=== PATIENT | female | born 1965 | race Two or more races ===

== ENCOUNTER 2023-04-22 11:41 | Inpatient (IN) | payer OTHER ==
[2023-04-22 12:01] VITALS: BMI 19.9
[2023-04-22] MEDS ORDERED: POLYETHYLENE GLYCOL (HEALTHYLAX) 3350 17 GM PACKET PO PRN (13:40)
[2023-04-22] MEDS ORDERED: NICOTINE POLACRILEX 2 MG GUM BUC PRN (13:40)
[2023-04-22] MEDS ORDERED: ONDANSETRON *ODT* 4 MG TABLET SL PRN (13:40)
[2023-04-22] MEDS ORDERED: guaiFENesin 600 MG TABLET.ER (FP) PO PRN (13:40)
[2023-04-22] MEDS ORDERED: MAG HYDROX/AL HYDROX/SIMETH 30 ML UNIT-DOSE CUP PO PRN (13:40)
[2023-04-22] MEDS ORDERED: IBUPROFEN 600 MG TABLET (FP) PO PRN (13:40)
[2023-04-22] MEDS ORDERED: COLLOIDAL OATMEAL 1 BAR EACH TP PRN (13:40)
[2023-04-22] MEDS ORDERED: AMMONIUM LACTATE 12% LOTION 225 GM BOTTLE TP PRN (13:40)
[2023-04-22] MEDS ORDERED: IBUPROFEN 400 MG TABLET (FP) PO PRN (13:40)
[2023-04-22] MEDS ORDERED: NALOXONE HCL (KLOXXADO) 8 MG SPRAY NS PRN (13:40)
[2023-04-22] MEDS ORDERED: BISMUTH SUBSALICYLATE 262 MG/15 ML BTL PO PRN (13:40)
[2023-04-22] MEDS ORDERED: LORazepam 2 MG TABLET PO ONE (13:40)
[2023-04-22] MEDS ORDERED: NICOTINE 10 MG CARTRIDGE (INHALER) IH PRN (13:40)
[2023-04-22] MEDS ORDERED: NALOXONE HCL 0.4 MG/ML VIAL IM PRN (13:40)
[2023-04-22] MEDS ORDERED: MAGNESIUM HYDROX 2400MG/30ML ORAL SUSPENSION 30 ML CUP PO PRN (13:40)
[2023-04-22] MEDS ORDERED: LOPERAMIDE HCL 2 MG CAPSULE PO PRN (13:40)
[2023-04-22] MEDS ORDERED: DICYCLOMINE HCL 10 MG CAPSULE PO PRN (13:40)
[2023-04-22] MEDS ORDERED: ACETAMINOPHEN 325 MG TABLET (FP) PO PRN (13:40)
[2023-04-22] MEDS ORDERED: NICOTINE 21 MG/24 HOURS TOPICAL PATCH ONE (14:49)
[2023-04-22] MEDS ORDERED: LORazepam 2 MG TABLET ONE (14:50)
[2023-04-22] MEDS: NICOTINE 21 MG/24 HOURS TOPICAL PATCH TD SCH (15:04)
[2023-04-22 16:16] LABS: CHLORIDE 92 mmol/L (98-107); SODIUM 132 mmol/L (136-145)
[2023-04-22 16:18] LABS: CALCIUM 8.5 mg/dL (8.5-10.1)
[2023-04-22 16:19] LABS: ALBUMIN 2.8 g/dl (3.4-5.0); BLOOD UREA NITROGEN 3.5 mg/dL (7-18); CO2 29 mmol/L (21-32); GLUCOSE,RANDOM 99 mg/dL (74-106)
[2023-04-22 16:20] LABS: HEMATOCRIT 34.6 % (32.4-45.2); HEMOGLOBIN 11.7 GM/dL (10.7-15.3); MCHC 33.8 g/dl (32.0-36.0); MEAN CELL VOLUME 85.7 fl (80-96); MEAN PLT VOLUME 8.4 fl (7.5-11.1); PLATELET COUNT 220 10^3/uL (134-434); RBC 4.03 M/mm3 (3.60-5.2)
[2023-04-22 16:22] LABS: CREATININE 0.4 mg/dL (0.55-1.3); SGOT/AST 167 U/L (15-37); SGPT/ALT 53 U/L (13-61)
[2023-04-22 16:24] LABS: BILIRUBIN,TOTAL 0.9 mg/dL (0.2-1); TOT PROT 6.7 g/dl (6.4-8.2)
[2023-04-22 16:25] LABS: ALK PHOS 369 U/L (45-117)
[2023-04-22 16:26] LABS: ANION GAP 11 MMOL/L (8-16); POTASSIUM 2.6 mmol/L (3.5-5.1)
[2023-04-22] MEDS ORDERED: POTASSIUM CHLORIDE TABS 20 MEQ TABLET.ER (FP) PO ONE (16:34)
[2023-04-22] MEDS: LORazepam 2 MG TABLET PO SCH ×2 (17:26→22:16)
[2023-04-22] MEDS ORDERED: P-EPHED 60MG/TRIPROLIDI 2.5MG TABLET PO PRN (18:19)
[2023-04-22] MEDS ORDERED: ALBUTEROL SO4 2.5/IPRATROPIUM 0.5 INH SOL 3 ML VIAL.NEB. NEB ONE ×2 (18:19→20:26)
[2023-04-22] MEDS ORDERED: MELATONIN 5 MG TABLETS PO SCH (22:00)
[2023-04-22] MEDS: POTASSIUM CHLORIDE TABS 20 MEQ TABLET.ER (FP) PO SCH (22:16)
[2023-04-22] MEDS: THIAMINE HCL 100 MG TABLET (FP) PO SCH (22:16)
[2023-04-22] MEDS: LACTULOSE 20 GM/30 ML UDC (FOR ORAL USE ONLY) PO SCH (22:17)
[2023-04-22] MEDS: BUDESONIDE/FORMETEROL FUMARATE 160/4.5 mcg INHALER IH SCH (22:20)
[2023-04-22] MEDS: BENZONATATE 200 MG CAPSULE PO PRN (22:22)
[2023-04-23] MEDS: LORazepam 2 MG TABLET PO SCH ×4 (05:57→22:14)
[2023-04-23] MEDS: LACTULOSE 20 GM/30 ML UDC (FOR ORAL USE ONLY) PO SCH ×2 (10:04→22:13)
[2023-04-23] MEDS: PRENATAL VITAMINS W/ FOLIC ACID TABLET (FP) PO SCH (10:05)
[2023-04-23] MEDS: LORATADINE 10 MG TABLET PO SCH (10:05)
[2023-04-23] MEDS: POTASSIUM CHLORIDE TABS 20 MEQ TABLET.ER (FP) PO SCH (10:05)
[2023-04-23] MEDS: NICOTINE 21 MG/24 HOURS TOPICAL PATCH TD SCH (10:07)
[2023-04-23] MEDS: guaiFENesin 200 MG/10 ML 10 ML UNIT-DOSE CUPS PO PRN ×2 (10:09→22:19)
[2023-04-23 10:46] LABS: POTASSIUM 2.8 mmol/L (3.5-5.1)
[2023-04-23] MEDS: BUDESONIDE/FORMETEROL FUMARATE 160/4.5 mcg INHALER IH SCH ×2 (11:16→22:14)
[2023-04-23] MEDS: BENZONATATE 200 MG CAPSULE PO PRN (18:30)
[2023-04-23] MEDS: hydrOXYzine PAMOATE 25 MG CAPSULE (FP) PO PRN (20:41)
[2023-04-23] MEDS: METHOCARBAMOL 500 MG TABLET PO PRN (22:12)
[2023-04-23] MEDS: THIAMINE HCL 100 MG TABLET (FP) PO SCH (22:12)
[2023-04-23] MEDS: MELATONIN 5 MG TABLETS PO SCH (22:13)
[2023-04-24] MEDS: LORazepam 1 MG TABLET PO SCH ×4 (05:48→22:08)
[2023-04-24] MEDS: PRENATAL VITAMINS W/ FOLIC ACID TABLET (FP) PO SCH (10:19)
[2023-04-24] MEDS: hydrOXYzine PAMOATE 25 MG CAPSULE (FP) PO PRN ×2 (10:19→17:01)
[2023-04-24] MEDS: LORATADINE 10 MG TABLET PO SCH (10:20)
[2023-04-24] MEDS: NICOTINE 21 MG/24 HOURS TOPICAL PATCH TD SCH (10:21)
[2023-04-24] MEDS: BUDESONIDE/FORMETEROL FUMARATE 160/4.5 mcg INHALER IH SCH ×2 (10:21→22:09)
[2023-04-24] MEDS: LACTULOSE 20 GM/30 ML UDC (FOR ORAL USE ONLY) PO SCH ×2 (10:21→22:07)
[2023-04-24] MEDS ORDERED: POTASSIUM CHLORIDE ORAL LIQUID 20 MEQ/15 ML PO ONE ×4 (10:55→19:00)
[2023-04-24] MEDS: METHOCARBAMOL 500 MG TABLET PO PRN (17:01)
[2023-04-24] MEDS: guaiFENesin 200 MG/10 ML 10 ML UNIT-DOSE CUPS PO PRN ×2 (17:05→22:10)
[2023-04-24] MEDS: MELATONIN 5 MG TABLETS PO SCH (22:07)
[2023-04-24] MEDS: THIAMINE HCL 100 MG TABLET (FP) PO SCH (22:08)
[2023-04-25] MEDS: LORazepam 0.5 MG TABLET PO SCH ×4 (05:55→22:07)
[2023-04-25] MEDS: guaiFENesin 200 MG/10 ML 10 ML UNIT-DOSE CUPS PO PRN ×3 (06:01→18:25)
[2023-04-25] MEDS: BENZOCAINE/MENTHOL (CHLORASEPTIC ) LOZENGE MM PRN (09:21)
[2023-04-25] MEDS: PRENATAL VITAMINS W/ FOLIC ACID TABLET (FP) PO SCH (10:12)
[2023-04-25] MEDS: LORATADINE 10 MG TABLET PO SCH (10:12)
[2023-04-25] MEDS: NICOTINE 21 MG/24 HOURS TOPICAL PATCH TD SCH (10:12)
[2023-04-25] MEDS: BUDESONIDE/FORMETEROL FUMARATE 160/4.5 mcg INHALER IH SCH ×2 (10:13→22:06)
[2023-04-25] MEDS: LACTULOSE 20 GM/30 ML UDC (FOR ORAL USE ONLY) PO SCH ×2 (10:13→22:03)
[2023-04-25 11:34] LABS: POTASSIUM 4.6 mmol/L (3.5-5.1)
[2023-04-25 11:35] LABS: CALCIUM 8.5 mg/dL (8.5-10.1)
[2023-04-25 11:36] LABS: BLOOD UREA NITROGEN 3.8 mg/dL (7-18)
[2023-04-25 11:39] LABS: CREATININE 0.4 mg/dL (0.55-1.3)
[2023-04-25] MEDS: hydrOXYzine PAMOATE 25 MG CAPSULE (FP) PO PRN (17:54)
[2023-04-25] MEDS: MELATONIN 5 MG TABLETS PO SCH (22:04)
[2023-04-25] MEDS: THIAMINE HCL 100 MG TABLET (FP) PO SCH (22:04)
[2023-04-25] MEDS: METHOCARBAMOL 500 MG TABLET PO PRN (22:06)
[2023-04-26] MEDS: BENZOCAINE/MENTHOL (CHLORASEPTIC ) LOZENGE MM PRN (02:37)
[2023-04-26] MEDS: guaiFENesin 200 MG/10 ML 10 ML UNIT-DOSE CUPS PO PRN (02:37)
[2023-04-26] MEDS ORDERED: LORazepam 0.5 MG TABLET PO ONE (05:00)
[2023-04-26 08:48] VITALS: BP 141/84; PULSE 89; RESP 16; TEMP 97.7
[2023-04-26] MEDS: NICOTINE 21 MG/24 HOURS TOPICAL PATCH TD SCH (09:20)
[2023-04-26] MEDS: LACTULOSE 20 GM/30 ML UDC (FOR ORAL USE ONLY) PO SCH (09:20)
[2023-04-26] MEDS: PRENATAL VITAMINS W/ FOLIC ACID TABLET (FP) PO SCH (09:20)
[2023-04-26] MEDS: LORATADINE 10 MG TABLET PO SCH (09:20)
[2023-04-26] MEDS: BUDESONIDE/FORMETEROL FUMARATE 160/4.5 mcg INHALER IH SCH (09:20)
== END 2023-04-26 12:32 | disposition home or self-care (01) | DRG 775 ==
LOC: YASAS 11:41 → Y3N 13:43
PROVIDERS: ADMIT Allergy & Immunology; ATTEND Surgery
PROC: HZ2ZZZZ Detoxification Services for Substance Abuse Treatment (ICD-10-PCS; principal; 2023-04-22)
DX: F10.230 Alcohol dependence with withdrawal, uncomplicated (principal); F12.20 Cannabis dependence, uncomplicated; F17.210 Nicotine dependence, cigarettes, uncomplicated; F19.282 Other psychoactive substance dependence with psychoactive substance-induced sleep disorder; F41.8 Other specified anxiety disorders; E72.20 Disorder of urea cycle metabolism, unspecified; E87.6 Hypokalemia; I10 Essential (primary) hypertension; J44.9 Chronic obstructive pulmonary disease, unspecified; J30.2 Other seasonal allergic rhinitis; G47.00 Insomnia, unspecified; Z86.59 Personal history of other mental and behavioral disorders
CPT/HCPCS: 26055; 36415; 71045-TC-FY; 80048; 80053; 82140; 84132; 85027; 86780; 94640; C9803-CS; U0003; U0005

== ENCOUNTER 2023-08-31 12:22 | Inpatient (IN) | payer OTHER ==
[2023-08-31 12:55] VITALS: BMI 21.4
[2023-08-31] MEDS ORDERED: MAGNESIUM HYDROX 2400MG/30ML ORAL SUSPENSION 30 ML CUP PO PRN (13:56)
[2023-08-31] MEDS ORDERED: NICOTINE POLACRILEX 2 MG GUM BUC PRN (13:56)
[2023-08-31] MEDS ORDERED: ONDANSETRON *ODT* 4 MG TABLET SL PRN (13:56)
[2023-08-31] MEDS ORDERED: LOPERAMIDE HCL 2 MG CAPSULE PO PRN (13:56)
[2023-08-31] MEDS ORDERED: NALOXONE HCL 0.4 MG/ML VIAL IM PRN (13:56)
[2023-08-31] MEDS ORDERED: BENZOCAINE/MENTHOL (CHLORASEPTIC ) LOZENGE MM PRN (13:56)
[2023-08-31] MEDS ORDERED: BISMUTH SUBSALICYLATE 262 MG/15 ML BTL PO PRN (13:56)
[2023-08-31] MEDS ORDERED: NALOXONE HCL (KLOXXADO) 8 MG SPRAY NS PRN (13:56)
[2023-08-31] MEDS ORDERED: MAG HYDROX/AL HYDROX/SIMETH 30 ML UNIT-DOSE CUP PO PRN (13:56)
[2023-08-31] MEDS ORDERED: IBUPROFEN 400 MG TABLET (FP) PO PRN (13:56)
[2023-08-31] MEDS ORDERED: BENZONATATE 200 MG CAPSULE PO PRN (13:56)
[2023-08-31] MEDS ORDERED: DICYCLOMINE HCL 10 MG CAPSULE PO PRN (13:56)
[2023-08-31] MEDS ORDERED: ACETAMINOPHEN 325 MG TABLET (FP) PO PRN (13:56)
[2023-08-31] MEDS ORDERED: guaiFENesin 600 MG TABLET.ER (FP) PO PRN (13:56)
[2023-08-31] MEDS ORDERED: chlordiazePOXIDE HCL 25 MG CAPSULE ONE (14:34)
[2023-08-31] MEDS: chlordiazePOXIDE HCL 25 MG CAPSULE PO PRN ×2 (14:36→20:18)
[2023-08-31] MEDS: chlordiazePOXIDE HCL 25 MG CAPSULE PO SCH ×2 (17:29→22:34)
[2023-08-31] MEDS: THIAMINE HCL 100 MG TABLET (FP) PO SCH (22:33)
[2023-08-31] MEDS: MELATONIN 5 MG TABLETS PO SCH (22:35)
[2023-08-31] MEDS ORDERED: ALBUTEROL SO4 HFA INHALER IH PRN (23:05)
[2023-08-31] MEDS: BUDESONIDE/FORMETEROL FUMARATE 160/4.5 mcg INHALER IH SCH (23:40)
[2023-09-01] MEDS: chlordiazePOXIDE HCL 25 MG CAPSULE PO SCH ×4 (05:11→22:22)
[2023-09-01 10:05] LABS: HEMATOCRIT 33.5 % (32.4-45.2); MCH 27.6 pg (25.7-33.7); MCHC 32.7 g/dl (32.0-36.0); MEAN CELL VOLUME 84.5 fl (80-96); MEAN PLT VOLUME 8.7 fl (7.5-11.1); PLATELET COUNT 215 10^3/uL (134-434); RBC 3.97 M/mm3 (3.60-5.2); RDW 17.4 % (11.6-15.6); WHITE BLOOD COUNT 4.5 K/mm3 (4.0-10.0)
[2023-09-01] MEDS: PRENATAL VITAMINS W/ FOLIC ACID TABLET (FP) PO SCH (10:08)
[2023-09-01] MEDS: BUDESONIDE/FORMETEROL FUMARATE 160/4.5 mcg INHALER IH SCH ×2 (10:08→22:21)
[2023-09-01] MEDS: NICOTINE 14 MG/24 HOURS TOPICAL PATCH TD SCH (10:08)
[2023-09-01 10:14] LABS: POTASSIUM 3.5 mmol/L (3.5-5.1)
[2023-09-01 10:22] LABS: ALBUMIN 2.9 g/dl (3.4-5.0); BLOOD UREA NITROGEN 7.1 mg/dL (7-18)
[2023-09-01 10:25] LABS: BILIRUBIN,TOTAL 1.1 mg/dL (0.2-1); CREATININE 0.6 mg/dL (0.55-1.3); TOT PROT 7.2 g/dl (6.4-8.2)
[2023-09-01] MEDS: chlordiazePOXIDE HCL 25 MG CAPSULE PO PRN (15:05)
[2023-09-01] MEDS: MELATONIN 5 MG TABLETS PO SCH (22:21)
[2023-09-01] MEDS: THIAMINE HCL 100 MG TABLET (FP) PO SCH (22:21)
[2023-09-02] MEDS: chlordiazePOXIDE HCL 25 MG CAPSULE PO SCH ×4 (05:34→22:14)
[2023-09-02] MEDS: IBUPROFEN 600 MG TABLET (FP) PO PRN (05:37)
[2023-09-02] MEDS: METHOCARBAMOL 500 MG TABLET PO PRN ×3 (05:37→22:15)
[2023-09-02] MEDS: BUDESONIDE/FORMETEROL FUMARATE 160/4.5 mcg INHALER IH SCH ×2 (10:10→22:13)
[2023-09-02] MEDS: NICOTINE 14 MG/24 HOURS TOPICAL PATCH TD SCH (10:10)
[2023-09-02] MEDS: PRENATAL VITAMINS W/ FOLIC ACID TABLET (FP) PO SCH (10:10)
[2023-09-02] MEDS: hydrOXYzine PAMOATE 25 MG CAPSULE (FP) PO PRN (15:19)
[2023-09-02] MEDS: POLYETHYLENE GLYCOL (HEALTHYLAX) 3350 17 GM PACKET PO PRN (18:43)
[2023-09-02] MEDS: THIAMINE HCL 100 MG TABLET (FP) PO SCH (22:14)
[2023-09-02] MEDS: MELATONIN 5 MG TABLETS PO SCH (22:14)
[2023-09-03] MEDS ORDERED: chlordiazePOXIDE HCL 10 MG CAPSULE PO PRN
[2023-09-03] MEDS: METHOCARBAMOL 500 MG TABLET PO PRN ×2 (04:00→13:47)
[2023-09-03] MEDS: chlordiazePOXIDE HCL 10 MG CAPSULE PO SCH ×4 (06:00→22:14)
[2023-09-03] MEDS: NICOTINE 14 MG/24 HOURS TOPICAL PATCH TD SCH (10:05)
[2023-09-03] MEDS: PRENATAL VITAMINS W/ FOLIC ACID TABLET (FP) PO SCH (10:05)
[2023-09-03] MEDS: BUDESONIDE/FORMETEROL FUMARATE 160/4.5 mcg INHALER IH SCH ×2 (10:05→22:14)
[2023-09-03] MEDS ORDERED: PATIENT'S OWN MEDICATION (NON-FORMULARY) (Atenolol/Chlorthalidone [Atenolol-Chlorthalidone PO SCH (11:30)
[2023-09-03] MEDS: ATENOLOL 50 MG TABLET (FP) PO SCH (13:21)
[2023-09-03] MEDS: CHLORTHALIDONE 25 MG TABLET PO SCH (13:21)
[2023-09-03] MEDS: hydrOXYzine PAMOATE 25 MG CAPSULE (FP) PO PRN (17:14)
[2023-09-03] MEDS: MELATONIN 5 MG TABLETS PO SCH (22:14)
[2023-09-03] MEDS: THIAMINE HCL 100 MG TABLET (FP) PO SCH (22:14)
[2023-09-03] MEDS: POLYETHYLENE GLYCOL (HEALTHYLAX) 3350 17 GM PACKET PO PRN (22:15)
[2023-09-04] MEDS: chlordiazePOXIDE HCL 10 MG CAPSULE PO SCH ×2 (05:55→17:06)
[2023-09-04] MEDS: NICOTINE 14 MG/24 HOURS TOPICAL PATCH TD SCH (09:43)
[2023-09-04] MEDS: CHLORTHALIDONE 25 MG TABLET PO SCH (09:43)
[2023-09-04] MEDS: PRENATAL VITAMINS W/ FOLIC ACID TABLET (FP) PO SCH (09:43)
[2023-09-04] MEDS: BUDESONIDE/FORMETEROL FUMARATE 160/4.5 mcg INHALER IH SCH ×2 (09:43→21:49)
[2023-09-04] MEDS: ATENOLOL 50 MG TABLET (FP) PO SCH (09:44)
[2023-09-04] MEDS: METHOCARBAMOL 500 MG TABLET PO PRN ×2 (09:44→19:03)
[2023-09-04] MEDS: IBUPROFEN 600 MG TABLET (FP) PO PRN (19:03)
[2023-09-04] MEDS: THIAMINE HCL 100 MG TABLET (FP) PO SCH (21:49)
[2023-09-04] MEDS: MELATONIN 5 MG TABLETS PO SCH (21:49)
[2023-09-04] MEDS: hydrOXYzine PAMOATE 25 MG CAPSULE (FP) PO PRN (21:50)
[2023-09-05] MEDS ORDERED: chlordiazePOXIDE HCL 10 MG CAPSULE PO ONE (05:00)
[2023-09-05] MEDS: METHOCARBAMOL 500 MG TABLET PO PRN (05:20)
[2023-09-05] MEDS: POLYETHYLENE GLYCOL (HEALTHYLAX) 3350 17 GM PACKET PO PRN (05:21)
[2023-09-05 06:49] VITALS: RESP 16
[2023-09-05 09:22] VITALS: BP 127/62; PULSE 73; TEMP 97.1
[2023-09-05] MEDS: BUDESONIDE/FORMETEROL FUMARATE 160/4.5 mcg INHALER IH SCH (09:34)
[2023-09-05] MEDS: PRENATAL VITAMINS W/ FOLIC ACID TABLET (FP) PO SCH (09:34)
[2023-09-05] MEDS: CHLORTHALIDONE 25 MG TABLET PO SCH (09:34)
[2023-09-05] MEDS: NICOTINE 14 MG/24 HOURS TOPICAL PATCH TD SCH (09:34)
[2023-09-05] MEDS: ATENOLOL 50 MG TABLET (FP) PO SCH (09:35)
[2023-09-05] MEDS: hydrOXYzine PAMOATE 25 MG CAPSULE (FP) PO PRN (09:35)
== END 2023-09-05 09:37 | disposition home or self-care (01) | DRG 775 ==
LOC: YASAS 12:22 → Y3N 15:00
PROVIDERS: ADMIT Allergy & Immunology; ATTEND Surgery
PROC: HZ2ZZZZ Detoxification Services for Substance Abuse Treatment (ICD-10-PCS; principal; 2023-08-31)
DX: F10.230 Alcohol dependence with withdrawal, uncomplicated (principal); F12.20 Cannabis dependence, uncomplicated; F17.210 Nicotine dependence, cigarettes, uncomplicated; F41.8 Other specified anxiety disorders; G47.00 Insomnia, unspecified; I10 Essential (primary) hypertension; J44.9 Chronic obstructive pulmonary disease, unspecified
CPT/HCPCS: 36415; 80053; 85027; 86780; 87635; 87811

== ENCOUNTER 2024-02-12 16:45 | Inpatient (IN) | payer OTHER ==
[2024-02-12 17:24] VITALS: BMI 23.9
[2024-02-12] MEDS ORDERED: BENZOCAINE/MENTHOL (CHLORASEPTIC ) LOZENGE MM PRN (18:05)
[2024-02-12] MEDS ORDERED: BENZONATATE 200 MG CAPSULE PO PRN (18:05)
[2024-02-12] MEDS ORDERED: DICYCLOMINE HCL 10 MG CAPSULE PO PRN (18:05)
[2024-02-12] MEDS ORDERED: LOPERAMIDE HCL 2 MG CAPSULE PO PRN (18:05)
[2024-02-12] MEDS ORDERED: ACETAMINOPHEN 325 MG TABLET (FP) PO PRN (18:05)
[2024-02-12] MEDS ORDERED: MAG HYDROX/AL HYDROX/SIMETH 30 ML UNIT-DOSE CUP PO PRN (18:05)
[2024-02-12] MEDS ORDERED: IBUPROFEN 600 MG TABLET (FP) PO PRN (18:05)
[2024-02-12] MEDS ORDERED: NALOXONE HCL (KLOXXADO) 8 MG SPRAY NS PRN (18:05)
[2024-02-12] MEDS ORDERED: BISMUTH SUBSALICYLATE 524 MG/30 ML PO PRN (18:05)
[2024-02-12] MEDS ORDERED: IBUPROFEN 400 MG TABLET (FP) PO PRN (18:05)
[2024-02-12] MEDS ORDERED: NALOXONE HCL 0.4 MG/ML VIAL IM PRN (18:05)
[2024-02-12] MEDS ORDERED: ONDANSETRON *ODT* 4 MG TABLET SL PRN (18:05)
[2024-02-12] MEDS ORDERED: hydrOXYzine PAMOATE 25 MG CAPSULE (FP) PO PRN (18:05)
[2024-02-12] MEDS ORDERED: guaiFENesin 600 MG TABLET.ER (FP) PO PRN (18:05)
[2024-02-12] MEDS ORDERED: diazePAM 5 MG TABLET ONE (18:18)
[2024-02-12] MEDS: diazePAM 5 MG TABLET PO PRN (18:47)
[2024-02-12] MEDS ORDERED: ALBUTEROL SO4 HFA INHALER IH PRN (20:10)
[2024-02-12] MEDS: ALBUTEROL SO4 HFA INHALER IH SCH (20:13)
[2024-02-12] MEDS: MELATONIN 5 MG TABLETS PO SCH (22:09)
[2024-02-12] MEDS: THIAMINE HCL 100 MG TABLET (FP) PO SCH (22:09)
[2024-02-12] MEDS: BUDESONIDE/FORMETEROL FUMARATE 160/4.5 mcg INHALER IH SCH (22:09)
[2024-02-12] MEDS: METHOCARBAMOL 500 MG TABLET PO PRN (22:10)
[2024-02-12] MEDS: diazePAM 5 MG TABLET PO SCH (22:10)
[2024-02-13] MEDS ORDERED: PATIENT'S OWN MEDICATION (NON-FORMULARY) (Atenolol/Chlorthalidone [Atenolol-Chlorthalidone PO SCH (10:00)
[2024-02-13] MEDS: NICOTINE 14 MG/24 HOURS TOPICAL PATCH TD SCH (10:25)
[2024-02-13] MEDS: PRENATAL VITAMINS W/ FOLIC ACID TABLET (FP) PO SCH (10:25)
[2024-02-13 10:56] LABS: HEMATOCRIT 34.1 % (32.4-45.2); HEMOGLOBIN 11.4 GM/dL (10.7-15.3); MCH 24.8 pg (25.7-33.7); MCHC 33.3 g/dl (32.0-36.0); MEAN CELL VOLUME 74.4 fl (80-96); MEAN PLT VOLUME 8.4 fl (7.5-11.1); PLATELET COUNT 283 10^3/uL (134-434); RBC 4.58 M/mm3 (3.60-5.2); RDW 19.4 % (11.6-15.6); WHITE BLOOD COUNT 6.6 K/mm3 (4.0-10.0)
[2024-02-13 11:07] LABS: CHLORIDE 93 mmol/L (98-107); POTASSIUM 3.8 mmol/L (3.5-5.1); SODIUM 127 mmol/L (136-145)
[2024-02-13 11:18] LABS: ANION GAP 10 mmol/L (4-13); BLOOD UREA NITROGEN 5.9 mg/dL (7-18); CALCIUM 9.1 mg/dL (8.5-10.1); CO2 25 mmol/L (21-32); GLUCOSE,RANDOM 152 mg/dL (74-106)
[2024-02-13 11:21] LABS: CREATININE 0.7 mg/dL (0.55-1.3); SGOT/AST 44 U/L (15-37); SGPT/ALT 25 U/L (13-61)
[2024-02-13 11:23] LABS: TOT PROT 7.3 g/dl (6.4-8.2)
[2024-02-13 11:24] LABS: ALK PHOS 290 U/L (45-117)
[2024-02-13] MEDS: ATENOLOL 50 MG TABLET (FP) PO SCH (12:19)
[2024-02-13] MEDS: CHLORTHALIDONE 25 MG TABLET PO SCH (12:19)
[2024-02-13] MEDS: hydrOXYzine PAMOATE 25 MG CAPSULE (FP) PO ONE (13:04)
[2024-02-13] MEDS: MELATONIN 5 MG TABLETS PO PRN (22:17)
[2024-02-13] MEDS: busPIRone HCL 5 MG TABLET PO SCH (22:18)
[2024-02-14] MEDS: diazePAM 5 MG TABLET PO SCH (05:45)
[2024-02-14] MEDS: POLYETHYLENE GLYCOL (HEALTHYLAX) 3350 17 GM PACKET PO PRN (14:09)
[2024-02-14] MEDS: hydrOXYzine PAMOATE 25 MG CAPSULE (FP) PO ONE (22:29)
[2024-02-14] MEDS: MAGNESIUM HYDROX 2400MG/30ML ORAL SUSPENSION 30 ML CUP PO PRN (22:32)
[2024-02-15] MEDS: diazePAM 5 MG TABLET PO SCH (05:46)
[2024-02-15] MEDS: SUVOREXANT 10 MG TABLET PO PRN (22:02)
[2024-02-16] MEDS: diazePAM 5 MG TABLET PO ONE (06:03)
[2024-02-16 07:05] VITALS: TEMP 97.7
[2024-02-16 09:22] VITALS: BP 142/67; PULSE 81; RESP 18
== END 2024-02-16 11:10 | disposition home or self-care (01) | DRG 775 ==
LOC: YASAS 16:45 → Y6N 20:08
PROVIDERS: ADMIT Allergy & Immunology; ATTEND Surgery
PROC: HZ2ZZZZ Detoxification Services for Substance Abuse Treatment (ICD-10-PCS; principal; 2024-02-12)
DX: F10.230 Alcohol dependence with withdrawal, uncomplicated (principal); F12.10 Cannabis abuse, uncomplicated; F17.210 Nicotine dependence, cigarettes, uncomplicated; F19.280 Other psychoactive substance dependence with psychoactive substance-induced anxiety disorder; F19.282 Other psychoactive substance dependence with psychoactive substance-induced sleep disorder; F41.8 Other specified anxiety disorders; G47.00 Insomnia, unspecified; I10 Essential (primary) hypertension; J43.0 Unilateral pulmonary emphysema [MacLeod's syndrome]
CPT/HCPCS: 36415; 80053; 80305; 80307; 85027; 86780; 87635; 87811; 93005; 93010

== ENCOUNTER 2025-03-22 10:59 | Inpatient (IN) | payer OTHER ==
[~2025-03-22 10:59] MED LIST: PATIENT'S OWN MEDICATION (NON-FORMULARY) (Atenolol/Chlorthalidone [Atenolol-Chlorthalidone PO SCH
[2025-03-22 11:28] VITALS: BMI 23.3
[2025-03-22] MEDS ORDERED: BENZOCAINE/MENTHOL (CHLORASEPTIC ) LOZENGE MM PRN (12:14)
[2025-03-22] MEDS ORDERED: LOPERAMIDE HCL 2 MG CAPSULE PO PRN (12:14)
[2025-03-22] MEDS ORDERED: DICYCLOMINE HCL 10 MG CAPSULE PO PRN (12:14)
[2025-03-22] MEDS ORDERED: IBUPROFEN 600 MG TABLET (FP) PO PRN (12:14)
[2025-03-22] MEDS ORDERED: BISMUTH SUBSALICYLATE 262 MG/15 ML BTL PO PRN (12:14)
[2025-03-22] MEDS ORDERED: POLYETHYLENE GLYCOL (HEALTHYLAX) 3350 17 GM PACKET PO PRN (12:14)
[2025-03-22] MEDS ORDERED: MAG HYDROX/AL HYDROX/SIMETH 30 ML UNIT-DOSE CUP PO PRN (12:14)
[2025-03-22] MEDS ORDERED: MAGNESIUM HYDROX 2400MG/30ML ORAL SUSPENSION 30 ML CUP PO PRN (12:14)
[2025-03-22] MEDS ORDERED: NALOXONE (NARCAN) HCL 4 MG/0.1 ML SPRAY NS PRN (12:14)
[2025-03-22] MEDS ORDERED: IBUPROFEN 400 MG TABLET (FP) PO PRN (12:14)
[2025-03-22] MEDS ORDERED: ONDANSETRON *ODT* 4 MG TABLET SL PRN (12:14)
[2025-03-22] MEDS ORDERED: ALBUTEROL SO4 HFA INHALER IH PRN (12:17)
[2025-03-22] MEDS ORDERED: NICOTINE 14 MG/24 HOURS TOPICAL PATCH TD ONE (12:43)
[2025-03-22] MEDS ORDERED: PRENATAL VITAMINS W/ FOLIC ACID TABLET (FP) PO ONE (12:43)
[2025-03-22] MEDS: NICOTINE 14 MG/24 HOURS TOPICAL PATCH TD SCH (12:45)
[2025-03-22] MEDS: PRENATAL VITAMINS W/ FOLIC ACID TABLET (FP) PO SCH (12:46)
[2025-03-22] MEDS ORDERED: LORazepam 1 MG TABLET ONE (13:00)
[2025-03-22] MEDS: LORazepam 1 MG TABLET PO PRN (13:02)
[2025-03-22] MEDS: CHLORTHALIDONE 25 MG TABLET PO SCH (14:12)
[2025-03-22] MEDS: ATENOLOL 50 MG TABLET (FP) PO SCH (14:12)
[2025-03-22] MEDS: LORazepam 2 MG TABLET PO SCH (17:21)
[2025-03-22] MEDS: hydrOXYzine PAMOATE 25 MG CAPSULE (FP) PO PRN (17:22)
[2025-03-22] MEDS: BENZONATATE 200 MG CAPSULE PO PRN (17:22)
[2025-03-22] MEDS: ACETAMINOPHEN 325 MG TABLET (FP) PO PRN (17:24)
[2025-03-22] MEDS: METHOCARBAMOL 500 MG TABLET PO PRN (22:02)
[2025-03-22] MEDS: P-EPHED 60MG/TRIPROLIDI 2.5MG TABLET PO PRN (22:02)
[2025-03-22] MEDS: BUDESONIDE/FORMETEROL FUMARATE 160/4.5 mcg INHALER IH SCH (22:02)
[2025-03-22] MEDS: THIAMINE 100 MG TABLET PO SCH (22:02)
[2025-03-22] MEDS: MELATONIN 5 MG TABLETS PO SCH (22:04)
[2025-03-23] MEDS: NALTREXONE HCL 50 MG TABLET PO SCH (10:03)
[2025-03-23 10:38] LABS: HEMATOCRIT 32.7 % (34.1-44.9); HEMOGLOBIN 10.2 g/dL (11.2-15.7); MCHC 31.2 g/dl (32.2-35.5); MEAN PLT VOLUME 10.4 fl (9.4-12.3); PLATELET COUNT 269 x10^3/uL (182-369); RDW 16.4 % (12.3-16.6)
[2025-03-23 10:44] LABS: POTASSIUM 3.3 mmol/L (3.5-5.1)
[2025-03-23 10:49] LABS: ALBUMIN 3.1 g/dl (3.4-5.0); BLOOD UREA NITROGEN 5.4 mg/dL (7-18)
[2025-03-23 10:50] LABS: CALCIUM 8.9 mg/dL (8.5-10.1)
[2025-03-23 10:53] LABS: CREATININE 0.5 mg/dL (0.55-1.3)
[2025-03-23 10:54] LABS: BILIRUBIN,TOTAL 0.3 mg/dL (0.2-1); TOT PROT 6.7 g/dl (6.4-8.2)
[2025-03-23] MEDS: guaiFENesin 600 MG TABLET.ER (FP) PO PRN (17:19)
[2025-03-24] MEDS: LORazepam 1 MG TABLET PO SCH (05:40)
[2025-03-24 09:03] VITALS: BP 141/67; PULSE 80; RESP 16; TEMP 97.6
[2025-03-24] MEDS: POTASSIUM CHLORIDE ORAL LIQUID 20 MEQ/15 ML PO ONE (09:50)
[2025-03-25] MEDS ORDERED: LORazepam 0.5 MG TABLET PO PRN
[2025-03-25] MEDS ORDERED: LORazepam 0.5 MG TABLET PO SCH (05:00)
[2025-03-26] MEDS ORDERED: LORazepam 0.5 MG TABLET PO ONE (05:00)
== END 2025-03-24 09:53 | disposition left against medical advice (07) | DRG 770 ==
LOC: YASAS 10:59 → Y3N 12:45
PROVIDERS: ADMIT Allergy & Immunology; ATTEND Allergy & Immunology
PROC: HZ2ZZZZ Detoxification Services for Substance Abuse Treatment (ICD-10-PCS; principal; 2025-03-22)
DX: F10.230 Alcohol dependence with withdrawal, uncomplicated (principal); F17.210 Nicotine dependence, cigarettes, uncomplicated; F41.8 Other specified anxiety disorders; U07.1 COVID-19; E87.6 Hypokalemia; I10 Essential (primary) hypertension; J43.0 Unilateral pulmonary emphysema [MacLeod's syndrome]
CPT/HCPCS: 0241U-QW; 36415; 80053; 80305; 80307; 85027; 86780; 93005; 93010